=== PATIENT | male | born 1970 | race Caucasian/White ===

== ENCOUNTER → 2020-03-23 | Outpatient (CLI) | payer BC, OTHER ==
[2020-03-23 13:18] LABS: CHLORIDE 99 MMOL/L (98-107); POTASSIUM 4.5 MMOL/L (3.6-5.0); SODIUM 139 MMOL/L (135-145)
[2020-03-23 13:19] LABS: ALANINE AMINOTRANSFERASE 64 U/L (0-55); ALBUMIN 4.5 GM/DL (3.2-4.5); ALKALINE PHOSPHATASE 75 U/L (40-136); BILIRUBIN,TOTAL 0.6 MG/DL (0.1-1.0); BUN/CREATININE RATIO 18; CALCIUM 9.9 MG/DL (8.5-10.1); CARBON DIOXIDE 28 MMOL/L (21-32); CREATININE SERUM 1.03 MG/DL (0.60-1.30); GFR ESTIMATED > 60; GLUCOSE 137 MG/DL (70-105); TOTAL PROTEIN 7.6 GM/DL (6.4-8.2)
[2020-03-23 15:12] LABS: CHOLESTEROL 347 MG/DL (< 200); HDL CHOLESTEROL 43 MG/DL (40-60); TRIGLYCERIDES 237 MG/DL (<150); VLDL CHOLESTEROL 47 MG/DL (5-40)
== END ==
LOC: LAB FS 10:40
PROVIDERS: ATTEND Family Medicine
DX: E11.9 Type 2 diabetes mellitus without complications (principal)
CPT/HCPCS: 36415; 80053; 80061; 82043; 83036

== ENCOUNTER 2020-04-17 12:54 | Emergency (ER) | payer BC ==
[~2020-04-17] VITALS: Ht 175.2 cm; Wt 111.4 kg
[2020-04-17 12:57] VITALS: BP 154/97
--- OUTSIDE RECORDS SUMMARY | 2020-04-17 12:59 | XMS REPORT | Continuity of Care Document ---
Author Organization Unknown Address Unknown Phone Unavailable Allergies There is no data. Medications There is no data. Problems Date Dx Coded Attending Type Code Diagnosis Diagnosed By 03/24/2020 SINAI MURDOCK MD Ot E11 .9 TYPE 2 DIABETES MELLITUS WITHOUT COMPLIC 04/06/2020 SINAI MURDOCK MD, Ot E11 .9 TYPE 2 DIABETES MELLITUS WITHOUT COMPLIC Procedures There is no data. Results There is no data. Encounters ACCT No. Visit Date/Time Discharge Status Pt. Type Provider Facility Loc./Unit Complaint [id number] 03/23/2020 10:40:00 020 23:59:59 CLS Outpatient SINAI MURDOCK MD [facility] LAB FS MICROALBUMIN URIN A1C LIPID
[2020-04-17] MEDS ORDERED: DICL75TA2 PO (13:07)
[2020-04-17] MEDS ORDERED: CYCL10TA9 PO (13:07)
--- NOTE | 2020-04-17 13:07 | ED Back Pain ---
General Stated Complaint: BACK PAIN Source of Information: Patient, Old Records, RN/MD History of Present Illness Date Seen by Provider: Apr 17, 2020 Time Seen by Provider: 12:55 Initial Comments This patient is a 50-year-old male that presents to the emergency department with complaint of low back pain that radiates down his leg and up to his back when he bends his right leg. Patient states he works [employer] does lifting of boxes in his up and down a ladder quite often. Patient states he felt a pop in his back yesterday has been hurt in his low back ever since. Describes tightness. Patient denies any injury. Location: Lumbar Spine Timing/Duration: 2-3 Days Severity: Moderate Pain/Injury Location: Back Radiation: Upper Legs Method of Injury: Unknown Allergies and Home Medications Patient Home Medication List Home Medication List Reviewed: Yes Review of Systems Constitutional: No no symptoms reported; see HPI; No chills, No diaphoresis, No dizziness, No fever, No malaise, No weakness, No weight gain, No weight loss, No other EENTM: No see HPI, No no symptoms reported, No ear discharge, No hearing loss, No ear pain, No blurred vision, No double vision, No eye pain, No tearing, No vision loss, No dental problems, No hoarseness, No mouth pain, No mouth swelling, No epistaxis, No nose congestion, No nose pain, No throat pain, No throat swelling, No other Respiratory: No no symptoms reported, No see HPI, No cough, No dyspnea on exertion, No hemoptysis, No orthopnea, No phlegm, No short of breath, No stridor, No wheezing, No other Cardiovascular: No no symptoms reported, No see HPI, No chest pain, No edema, No Hx of Intervention, No palpitations, No syncope, No vascular heart diseas, No other Gastrointestinal: No RUQ, No LUQ, No RLQ, No LLQ, No no symptoms reported, No see HPI, No abdominal pain, No constipation, No diarrhea, No dysphagia, No hematemesis, No heartburn, No jaundice, No loss of appetite, No melena, No nausea, No vomiting, No other Genitourinary: No no symptoms reported, No see HPI, No decreased output, No discharge, No dysuria, No frequency, No hematuria, No hesitancy, No incontinence, No nocturia, No pain, No other Musculoskeletal: No no symptoms reported; see HPI, back pain; No gout, No joint pain, No joint swelling, No muscle pain, No muscle stiffness, No muscle cramps, No muscle twitching, No muscle weakness, No neck pain, No other Skin: No no symptoms reported, No see HPI, No change in color, No change in hair/nails, No dryness, No hx of skin cancer, No lesions, No lumps, No pruritus, No rash, No other All Other Systems Reviewed Negative Unless Noted: Yes Physical Exam Vital Signs Capillary Refill : Height, Weight, BMI Height: '" Weight: lbs. oz. kg; BMI Method: General Appearance: No Apparent Distress, WD/WN Neck: Full Range of Motion, Normal Inspection, Non Tender, Supple Cardiovascular: Regular Rate, Rhythm, No Edema, No Gallop, No JVD, No Murmur, Normal Peripheral Pulses Respiratory: Chest Non Tender, Lungs Clear, Normal Breath Sounds, No Accessory Muscle Use, No Respiratory Distress Gastrointestinal: Normal Bowel Sounds, No Organomegaly, No Pulsatile Mass, Non Tender, Soft Back: Normal Inspection, Other (tightness the lower back muscles. Patient describes sciatica.) Extremity: Normal Capillary Refill, Normal Inspection, Normal Range of Motion, Non Tender, No Calf Tenderness, No Pedal Edema, Calf Tenderness Skin: Normal Color, Warm/Dry Progress/Results/Core Measures Progress Progress Note : Time: 13:05 Progress Note Patient describes low back injury and sciatica. Has no known mechanism of injury. Other than work-related lifting and climbing up and down ladders. We'll write the patient prescription for Flexeril and diclofenac. Patient is to use heating pad and his low back in stretches as instructed. Follow-up with PCP in 2-3 doses if not improved. Departure Impression Primary Impression: Low back pain with sciatica Disposition: 01 HOME, SELF-CARE Condition: Stable Departure-Patient Inst. Decision time for Depature: 13:06 Referrals: SINAI MURDOCK MD (PCP/Family) Primary Care Physician Patient Instructions: Sciatica (DC), Sciatica Exercises Add. Discharge Instructions: We'll write the patient prescription for Flexeril and diclofenac. Patient is to use heating pad and his low back in stretches as instructed. Follow-up with PCP in 2-3 doses if not improved. Scripts Diclofenac Sodium (Diclofenac Sodium) 75 Mg Tablet. 75 MG PO BID for 10 Days, #20 TAB 0 Refills Prov: JEFFRY STCAK MD 04/17/20 Cyclobenzaprine HCl (Cyclobenzaprine HCl) 10 Mg Tablet 10 MG PO Q8H PRN for SPASMS, #10 TAB 0 Refills Prov: JEFFRY STACK MD 04/17/20 JEFFRY STACK MD Apr 17, 2020 13:07
== END 2020-04-17 13:14 | disposition home or self-care (01) ==
LOC: EDUNIT# 12:54 → ER FS 12:55
DX: M54.41 Lumbago with sciatica, right side (principal); X50.1XXA Overexertion from prolonged static or awkward postures, initial encounter; Y92.59 Other trade areas as the place of occurrence of the external cause
CPT/HCPCS: 99281

== ENCOUNTER 2020-07-21 16:04 | Emergency (ER) | payer BC ==
[~2020-07-21 16:04] MED LIST: CYCL10TA9 PO; DICL75TA2 PO
[2020-07-21] MEDS ORDERED: NS IV 1000 ML 1,000 ML IV STA (16:29)
[2020-07-21] MEDS ORDERED: KETOROLAC 60 MG/2 ML VIAL IV ONE (16:30)
[2020-07-21] MEDS ORDERED: ONDANSETRON 4 MG/2 ML (SDV) Z0FRAN IVP ONE (16:30)
--- NOTE | 2020-07-21 16:36 | ED Abdominal Pain ---
General Chief Complaint: Abdominal/GI Problems Stated Complaint: ABD CRAMPS,RIB PAIN,DIARRHEA Nursing Triage Note: Has had abdominal pain, diarrhea, and rectal cramping x 4 hours. Denies nausea, vomiting, or fevers. Has hx of diverticulitis. Sepsis Screen: No Definite Risk Source of Information: Patient History of Present Illness Date Seen by Provider: Jul 21, 2020 Time Seen by Provider: 16:20 Initial Comments This patient is a 50-year-old male assisted the emerge department complaining of lower abdominal pain and loose stool. Patient states he does have a history of diverticulitis. Patient denies any blood per rectum Severity/Quality: Moderate Location: Generalized Abdomen Allergies and Home Medications Allergies Coded Allergies: Penicillins (Verified Allergy, Unknown, 04/17/20) Home Medications Cyclobenzaprine HCl 10 Mg Tablet, 10 MG PO Q8H PRN for SPASMS Prescribed by: JEFFRY STACK on 04/17/20 1307 Diclofenac Sodium 75 Mg Tablet.dr, 75 MG PO BID Prescribed by: JEFFRY STACK on 04/17/20 1307 Patient Home Medication List Home Medication List Reviewed: Yes Review of Systems Review of Systems Constitutional: No no symptoms reported, No see HPI, No chills, No diaphoresis, No dizziness, No fever, No malaise, No weakness, No weight gain, No weight loss, No other EENTM: No No Symptoms Reported, No See HPI, No Blurred Vision, No Double Vision, No Eye Pain, No Eye Tearing, No Ear Drainage, No Ear Pain, No Mouth Pain, No Mouth Swelling, No Nose Congestion, No Nose Pain, No Throat Pain, No Throat Swelling, No Other Respiratory: Denies No Symptoms Reported, Denies See HPI, Denies Cough, Denies Orthopnea, Denies Shortness of Air, Denies SOA With Exertion, Denies SOA at Rest, Denies Stridor, Denies Wheezing, Denies Other Cardiovascular: Denies No Symptoms Reported, Denies See HPI, Denies Chest Pain, Denies Edema, Denies Irregular Heart Rate, Denies Lightheadedness, Denies Palpitations, Denies Syncope, Denies Other Gastrointestinal: Denies No Symptoms Reported, Denies See HPI, Denies Abdomen Distended, Denies Abdominal Pain, Denies Blood Streaked Stools, Denies Constipated; Diarrhea; Denies Difficulty Swallowing; Nausea; Denies Poor Appetite, Denies Poor Fluid Intake, Denies Rectal Bleeding, Denies Vomiting, Denies Other Genitourinary: Denies No Symptoms Reported, Denies See HPI, Denies Burning, Denies Discharge, Denies Drainage, Denies Frequency, Denies Flank Pain, Denies Hematuria, Denies Incontinence, Denies Pain, Denies Urgency, Denies Other Musculoskeletal: No no symptoms reported, No see HPI, No back pain, No gout, No joint pain, No joint swelling, No muscle pain, No muscle stiffness, No muscle cramps, No muscle twitching, No muscle weakness, No neck pain, No other Skin: No no symptoms reported, No see HPI, No change in color, No change in hair/nails, No dryness, No hx of skin cancer, No lesions, No lumps, No pruritus, No rash, No other All Other Systems Reviewed Negative Unless Noted: Yes Past Rpxlsum-Xubxwm-Rfvrgd Hx Patient Social History Alcohol Use: Denies Use Recreational Drug Use: No Smoking Status: Never a Smoker 2nd Hand Smoke Exposure: No Recent Foreign Travel: No Contact w/Someone Who Travel: No Recent Infectious Disease Expo: No Recent Hopitalizations: No Physical Abuse: No Sexual Abuse: No Mistreated: No Fear: No Seasonal Allergies Seasonal Allergies: No Past Medical History Surgeries: Yes (Meniscus repair) Vasectomy Respiratory: No Cardiac: Yes High Cholesterol, Hypertension Neurological: No Genitourinary: No Gastrointestinal: No Musculoskeletal: No Endocrine: Yes Diabetes, Non-Insulin dep HEENT: No Cancer: No Psychosocial: No Integumentary: No Blood Disorders: No Physical Exam Vital Signs Vital Signs - First Documented 07/21/20 16:24 Temp 36.3 Pulse 105 Resp 16 B/P (MAP) 157/106 (123) Pulse Ox 97 Capillary Refill : Less Than 3 Seconds Height/Weight/BMI Height: '" Weight: lbs. oz. kg; 36.00 BMI Method: General Appearance: WD/WN, no apparent distress Respiratory: chest non-tender, lungs clear, normal breath sounds, no respiratory distress, no accessory muscle use Cardiovascular: normal peripheral pulses, regular rate, rhythm, no edema, no gallop, no JVD, no murmur Gastrointestinal: normal bowel sounds, non tender, soft, no organomegaly, no pulsatile mass Extremities: normal range of motion, non-tender, normal inspection, no pedal edema, no calf tenderness, normal capillary refill Skin: normal color, warm/dry Lymphatic: no adenopathy Progress/Results/Core Measures Results/Orders Lab Results Laboratory Tests Test 07/21/20 16:40 07/21/20 16:55 Range/Units White Blood Count 8.8 4.3-11.0 10^3/uL Red Blood Count 5.08 4.35-5.85 10^6/uL Hemoglobin 15.2 13.3-17.7 G/DL Hematocrit 44 40-54 % Mean Corpuscular Volume 86 80-99 FL Mean Corpuscular Hemoglobin 30 25-34 PG Mean Corpuscular Hemoglobin Concent 35 32-36 G/DL Red Cell Distribution Width 13.0 10.0-14.5 % Platelet Count 272 130-400 10^3/uL Mean Platelet Volume 11.2 H 7.4-10.4 FL Neutrophils (%) (Auto) 63 42-75 % Lymphocytes (%) (Auto) 28 12-44 % Monocytes (%) (Auto) 7 0-12 % Eosinophils (%) (Auto) 1 0-10 % Basophils (%) (Auto) 1 0-10 % Neutrophils # (Auto) 5.6 1.8-7.8 X 10^3 Lymphocytes # (Auto) 2.5 1.0-4.0 X 10^3 Monocytes # (Auto) 0.6 0.0-1.0 X 10^3 Eosinophils # (Auto) 0.1 0.0-0.3 10^3/uL Basophils # (Auto) 0.1 0.0-0.1 10^3/uL Sodium Level 131 L 135-145 MMOL/L Potassium Level 4.0 3.6-5.0 MMOL/L Chloride Level 94 L 98-107 MMOL/L Carbon Dioxide Level 23 21-32 MMOL/L Anion Gap 14 5-14 MMOL/L Blood Urea Nitrogen 17 7-18 MG/DL Creatinine 0.90 0.60-1.30 MG/DL Estimat Glomerular Filtration Rate > 60 BUN/Creatinine Ratio 19 Glucose Level 349 H 70-105 MG/DL Calcium Level 9.5 8.5-10.1 MG/DL Corrected Calcium 9.1 8.5-10.1 MG/DL Total Bilirubin 0.4 0.1-1.0 MG/DL Aspartate Amino Transf (AST/SGOT) 78 H 5-34 U/L Alanine Aminotransferase (ALT/SGPT) 82 H 0-55 U/L Alkaline Phosphatase 83 40-136 U/L Total Protein 7.6 6.4-8.2 GM/DL Albumin 4.5 3.2-4.5 GM/DL Urine Color YELLOW Urine Clarity CLEAR Urine pH 6.0 5-9 Urine Specific [place] 1.020 1.016-1.022 Urine Protein TRACE H NEGATIVE Urine Glucose (UA) 3+ H NEGATIVE Urine Ketones NEGATIVE NEGATIVE Urine Nitrite NEGATIVE NEGATIVE Urine Bilirubin NEGATIVE NEGATIVE Urine Urobilinogen 0.2 < = 1.0 MG/DL Urine Leukocyte Esterase NEGATIVE NEGATIVE Urine RBC (Auto) TRACE H NEGATIVE Urine RBC RARE /HPF Urine WBC RARE /HPF Urine Squamous Epithelial Cells NONE /HPF Urine Crystals NONE /LPF Urine Bacteria NEGATIVE /HPF Urine Casts NONE /LPF Urine Mucus NEGATIVE /LPF Urine Culture Indicated NO My Orders Orders - JEFFRY STACK MD Ct Abd/Pelv W (Appendicitis) (07/21/20 16:29) Ed Iv/Invasive Line Start (07/21/20 16:29) Cbc With Automated Diff (07/21/20 16:29) Comprehensive Metabolic Panel (07/21/20 16:29) Urinalysis (07/21/20 16:29) Ns Iv 1000 Ml (Sodium Chloride 0.9%) (07/21/20 16:29) Ondansetron Injection (Zofran Injectio (07/21/20 16:30) Ketorolac Injection (Toradol Injection) (07/21/20 16:30) Iohexol Injection (Omnipaque 350 Mg/Ml 1 (07/21/20 17:30) Received Contrast (Hold Metformin- Contr (07/21/20 17:30) Sodium Chloride Flush (Catheter Flush Sy (07/21/20 17:30) Ns (Ivpb) (Sodium Chloride 0.9% Ivpb Bag (07/21/20 17:30) Medications Given in ED Current Medications Medications Dose Ordered Sig/Yesica Route Start Time Stop Time Status Last Admin Dose Admin Iohexol 100 ml ONCE ONCE IV 07/21/20 17:30 07/21/20 17:31 DC 07/21/20 17:31 100 ML Ketorolac Tromethamine 15 mg ONCE ONCE IV 07/21/20 16:30 07/21/20 16:32 DC 07/21/20 16:43 15 MG Ondansetron HCl 4 mg ONCE ONCE IVP 07/21/20 16:30 07/21/20 16:32 DC 07/21/20 16:42 4 MG Sodium Chloride 10 ml NEEDED PRN IV 07/21/20 17:30 07/21/20 17:32 10 ML Sodium Chloride 100 ml ONCE ONCE IV 07/21/20 17:30 07/21/20 17:31 DC 07/21/20 17:32 100 ML Vital Signs/I&O 07/21/20 16:24 Temp 36.3 Pulse 105 Resp 16 B/P (MAP) 157/106 (123) Pulse Ox 97 Blood Pressure Mean: 123 Progress Progress Note : Time: 18:00 Progress Note IMPRESSION: 1. Mild acute-subacute sigmoid colon diverticulitis. No perforation or abscess. 2. Hepatomegaly with diffuse hepatic steatosis. Encourage by mouth fluids. Tylenol Motrin as needed for pain or discomfort. We'll also prescribe Bentyl. Use as prescribed. Patient be placed on Cipro and Flagyl. Patient should've a clear liquid diet until pain free. Follow-up with PCP in 2-3 days. Departure Impression Primary Impression: Sigmoid diverticulitis Disposition: HOME, SELF-CARE Condition: Stable Departure-Patient Inst. Decision time for Depature: 18:01 Referrals: SINAI MURDOCK MD (PCP/Family) Primary Care Physician Patient Instructions: Diverticulitis (DC) Add. Discharge Instructions: Encourage by mouth fluids. Tylenol Motrin as needed for pain or discomfort. We'll also prescribe Bentyl. Use as prescribed. Patient be placed on Cipro and Flagyl. Patient should've a clear liquid diet until pain free. Follow-up with PCP in 2-3 days. All discharge instructions reviewed with patient and/or family. Voiced understanding. Scripts Dicyclomine HCl (Dicyclomine HCl) 20 Mg Tablet 20 MG PO TID, #30 TAB 0 Refills Prov: JEFFRY STACK MD 07/21/20 Metronidazole (Metronidazole) 500 Mg Tablet 500 MG PO TID for 10 Days, #30 TAB 0 Refills Prov: JEFFRY STACK MD 07/21/20 Ciprofloxacin HCl (Ciprofloxacin HCl) 500 Mg Tablet 500 MG PO BID, #14 TAB Prov: JEFFRY STACK MD 07/21/20 JEFFRY STACK MD Jul 21, 2020 16:36
[2020-07-21 17:01] LABS: BASOPHILS % (AUTO) 1 % (0-10); EOSINOPHILS % (AUTO) 1 % (0-10); HEMATOCRIT 44 % (40-54); HEMOGLOBIN 15.2 G/DL (13.3-17.7); LYMPHOCYTES % (AUTO) 28 % (12-44); MEAN CORPUSCULAR HEMOGLOBIN 30 PG (25-34); MEAN CORPUSCULAR HGB CONC 35 G/DL (32-36); MEAN CORPUSCULAR VOLUME 86 FL (80-99); MEAN PLATELET VOLUME 11.2 FL (7.4-10.4); MONOCYTES % (AUTO) 7 % (0-12); NEUTROPHILS % (AUTO) 63 % (42-75); PLATELET COUNT 272 10^3/uL (130-400); WHITE BLOOD COUNT 8.8 10^3/uL (4.3-11.0)
[2020-07-21 17:02] LABS: BASOPHILS # (AUTO) 0.1 10^3/uL (0.0-0.1); EOSINOPHILS # (AUTO) 0.1 10^3/uL (0.0-0.3); LYMPHOCYTES # (AUTO) 2.5 X 10^3 (1.0-4.0); MONOCYTES # (AUTO) 0.6 X 10^3 (0.0-1.0); NEUTROPHILS # (AUTO) 5.6 X 10^3 (1.8-7.8)
[2020-07-21 17:15] LABS: CARBON DIOXIDE 23 MMOL/L (21-32); CHLORIDE 94 MMOL/L (98-107); SODIUM 131 MMOL/L (135-145)
[2020-07-21 17:16] LABS: ALANINE AMINOTRANSFERASE 82 U/L (0-55); ALBUMIN 4.5 GM/DL (3.2-4.5); ALKALINE PHOSPHATASE 83 U/L (40-136); BILIRUBIN,TOTAL 0.4 MG/DL (0.1-1.0); BUN/CREATININE RATIO 19; CALCIUM 9.5 MG/DL (8.5-10.1); GFR ESTIMATED > 60; GLUCOSE 349 MG/DL (70-105); TOTAL PROTEIN 7.6 GM/DL (6.4-8.2)
[2020-07-21] MEDS ORDERED: NS 100 ML (IVPB) BAG IV ONE (17:30)
[2020-07-21] MEDS ORDERED: CATHETER FLUSH 10 ML SYR IV PRN (17:30)
[2020-07-21] MEDS ORDERED: IOHEXOL 350 MG/ML 100 ML (OMNIPAQUE 350) VIAL IV ONE (17:30)
[2020-07-21] MEDS ORDERED: HOLD METFORMIN - RECEIVED CONTRAST 20 ML VIAL IV SCH (17:30)
[2020-07-21 17:36] LABS: CLARITY,URINE CLEAR; COLOR,URINE YELLOW
[2020-07-21 17:37] LABS: BACTERIA,URINE NEGATIVE /HPF; BILIRUBIN,URINE NEGATIVE (NEGATIVE); GLUCOSE, URINE (UA) 3+ (NEGATIVE); KETONES,URINE NEGATIVE (NEGATIVE); LEUKOCYTE ESTERASE ,URINE NEGATIVE (NEGATIVE); NITRITE,URINE NEGATIVE (NEGATIVE); PROTEIN,URINE TRACE (NEGATIVE); RBC,URINE RARE /HPF; WBC,URINE RARE /HPF
--- NOTE | 2020-07-21 17:49 | Diagnostic Imaging Report ---
CT ABD/PELV W (APPENDICITIS) TECHNIQUE: Multiple contiguous axial images were obtained through the abdomen and pelvis after administration of intravenous contrast. All CT scans use one or more of the following dose optimizing techniques: automated exposure control, MA and/or KvP adjustment based on a patient size and exam type, or iterative reconstruction. INDICATION: Lower abdominal pain for three weeks. COMPARISON: None available. FINDINGS: Lower chest: The lung bases are clear. No pericardial or pleural effusion. Peritoneum: No free intraperitoneal air or fluid. Liver and biliary system: Liver is enlarged with diffuse hypoattenuation of liver indicative of hepatic steatosis. No focal hepatic lesion. The gallbladder is normal. No biliary duct dilation. Spleen and Pancreas: Spleen is normal. The pancreas enhances normally without mass lesion or peripancreatic inflammatory changes. Adrenals: Normal. tract: The kidneys enhance normally without suspicious mass or obstruction. Urinary bladder is distended without wall thickening. Prostate is not enlarged. GI tract: Stomach is decompressed. No bowel obstruction. Sigmoid colon diverticulosis with associated wall thickening and mild surrounding inflammation is indicative of mild diverticulitis. No perforation or abscess. Appendix is normal. Vasculature and Lymph nodes: Normal caliber aorta. No abdominal or pelvic lymphadenopathy. Musculoskeletal: No concerning osseous lesion. IMPRESSION: 1. Mild acute-subacute sigmoid colon diverticulitis. No perforation or abscess. 2. Hepatomegaly with diffuse hepatic steatosis. Dictated by: Dictated on workstation # [id number]
[2020-07-21] MEDS ORDERED: DICY20TA10 PO (18:03)
[2020-07-21] MEDS ORDERED: CIPR500T4 PO (18:03)
[2020-07-21] MEDS ORDERED: METR-145 PO (18:03)
[2020-07-21] MEDS ORDERED: LEVOFLOXACIN 500 MG TAB (LEVAQUIN) PO ONE (18:15)
[2020-07-21 18:24] VITALS: BP 133/86
== END 2020-07-21 18:20 | disposition home or self-care (01) ==
LOC: EDUNIT# 16:04 → ER FS 16:06
DX: K57.32 Diverticulitis of large intestine without perforation or abscess without bleeding (principal); Z88.0 Allergy status to penicillin
CPT/HCPCS: 36415; 74177; 80053; 81000; 85025

== ENCOUNTER 2020-09-10 15:03 | Emergency (ER) | payer BC ==
[2020-09-10] MEDS ORDERED: NS IV 1000 ML 1,000 ML IV SCH (15:40)
[2020-09-10] MEDS ORDERED: ACETAMINOPHEN 500 MG TAB (TYLENOL) PO ONE (15:45)
[2020-09-10] MEDS ORDERED: IBUPROFEN 800 MG (MOTRIN) TAB PO ONE (15:45)
[2020-09-10 15:56] LABS: HEMATOCRIT 42 % (40-54); HEMOGLOBIN 14.5 G/DL (13.3-17.7); MEAN CORPUSCULAR HEMOGLOBIN 30 PG (25-34); MEAN CORPUSCULAR HGB CONC 35 G/DL (32-36); MEAN CORPUSCULAR VOLUME 87 FL (80-99); MEAN PLATELET VOLUME 11.7 FL (7.4-10.4); PLATELET COUNT 214 10^3/uL (130-400)
[2020-09-10 15:57] LABS: BASOPHILS % (AUTO) 1 % (0-10); EOSINOPHILS % (AUTO) 0 % (0-10); LYMPHOCYTES % (AUTO) 15 % (12-44); MONOCYTES # (AUTO) 0.6 X 10^3 (0.0-1.0); MONOCYTES % (AUTO) 9 % (0-12); NEUTROPHILS # (AUTO) 5.3 X 10^3 (1.8-7.8); NEUTROPHILS % (AUTO) 75 % (42-75)
--- NOTE | 2020-09-10 16:05 | ED General ---
General Chief Complaint: Cough/Cold/Flu Symptoms Stated Complaint: FEELS FEVERISH;WEAKNESS Nursing Triage Note: Has had congestion x 3 days. At 1030 this morning started having chills, nausea, fatigue, and headache. No known sick contacts. Denies fevers. Nursing Sepsis Screen: No Definite Risk History of Present Illness Date Seen by Provider: Sep 10, 2020 Time Seen by Provider: 15:00 Initial Comments The patient is a 50-year-old male with a history of hypertension, hyperlipidemia and mme-dblpiog-gnhnkguug diabetes who presents for evaluation of multiple symptoms with onset about 3 days ago. Patient notes nasal congestion since the day of onset, mild. He notes an associated very mild dry cough as well. Late is morning he noticed additional symptoms including chills, mild nausea, body aches, fatigue and a mild headache. No associated sae fevers measured at home, vomiting, focal weakness, numbness, tingling, neck stiffness/pain/meningismus (patient ranges neck fully in all dimensions without discomfort or distress), vision changes, shortness of breath or chest pain of any kind, abdominal pain of any kind, flank pain, back pain, dysuria or hematuria, changes in bowel habits. Patient is alert and pleasantly and appropriately interactive and in absolute no acute distress, very mildly tachycardic with a heart rate of about 103 but with appropriate oxygenation and otherwise normal vital signs upon initial evaluation here in the emergency department. Allergies and Home Medications Allergies Coded Allergies: Penicillins (Verified Allergy, Unknown, 04/17/20) Home Medications Ciprofloxacin HCl 500 Mg Tablet, 500 MG PO BID Prescribed by: JEFFRY STACK on 07/21/201802 Cyclobenzaprine HCl 10 Mg Tablet, 10 MG PO Q8H PRN for SPASMS Prescribed by: JEFFRY STACK on 04/17/20 130 Diclofenac Sodium 75 Mg Tablet.dr, 75 MG PO BID Prescribed by: JEFFRY STACK on 04/17/20 130 Dicyclomine HCl 20 Mg Tablet, 20 MG PO TID Prescribed by: JEFFRY STACK on 07/21/201802 Metronidazole 500 Mg Tablet, 500 MG PO TID Prescribed by: JEFFRY STACK on 07/21/201802 Patient Home Medication List Home Medication List Reviewed: Yes Review of Systems Review of Systems Constitutional: see HPI All Other Systems Reviewed Negative Unless Noted: Yes (Negative excepted noted.) Past Injcmao-Qxekrz-Ezxtfe Hx Past Med/Social Hx: Reviewed Nursing Past Med/Soc Hx Patient Social History Alcohol Use: Denies Use Recreational Drug Use: No Smoking Status: Never a Smoker 2nd Hand Smoke Exposure: No Recent Foreign Travel: No Contact w/Someone Who Travel: No Recent Infectious Disease Expo: No Recent Hopitalizations: No Physical Abuse: No Sexual Abuse: No Mistreated: No Fear: No Seasonal Allergies Seasonal Allergies: No Past Medical History Surgeries: Yes (Meniscus repair) Vasectomy Respiratory: No Cardiac: Yes High Cholesterol, Hypertension Neurological: No Genitourinary: No Gastrointestinal: No Musculoskeletal: No Endocrine: Yes Diabetes, Non-Insulin dep HEENT: No Cancer: No Psychosocial: No Integumentary: No Blood Disorders: No Family Medical History Reviewed Nursing Family Hx Physical Exam Vital Signs Vital Signs - First Documented 09/10/20 09/10/20 15:20 15:24 Temp 36.9 Pulse 103 Resp 16 B/P (MAP) 165/90 (115) Pulse Ox 97 O2 Delivery Room Air Capillary Refill : Less Than 3 Seconds Height, Weight, BMI Height: '" Weight: lbs. oz. kg; 36.00 BMI Method: General Appearance: No Apparent Distress Comments This is an older male appearing nontoxic and in no acute distress. Head is normocephalic and atraumatic. Neck is supple and nontender. Oropharynx is moist. Lungs are clear to auscultation at all stations. There is a normal S1 and S2 without rubs or gallops and capillary refill is appropriate, less than 2 seconds globally. There is no dependent peripheral edema noted and no calf tenderness or swelling bilaterally and peripheral pulses are 2+ and equal to bilateral radials, dorsalis pedis and posterior tibials. Abdomen is soft, nontender nondistended. Skin is warm and dry without cyanosis, clubbing or edema. Psychiatrically, the patient didn't straights appropriate mood and affect and is alert. Progress/Results/Core Measures Suspected Sepsis Recent Fever Within 48 Hours: No Infection Criteria Present: None New/Unexplained Altered Menta: No Sepsis Screen: No Definite Risk SIRS Temperature: Pulse: 103 Respiratory Rate: 16 Laboratory Tests 09/10/20 15:41: White Blood Count 7.0 Blood Pressure 165 /90 Mean: 115 Laboratory Tests 09/10/20 15:41: Creatinine 0.90, Platelet Count 214, Total Bilirubin 0.3 Results/Orders Lab Results Laboratory Tests Test 09/10/20 15:35 09/10/20 15:36 09/10/20 15:41 09/10/20 15:47 Range/Units Glucometer 436 *H 70-110 MG/DL White Blood Count 7.0 4.3-11.0 10^3/uL Red Blood Count 4.83 4.35-5.85 10^6/uL Hemoglobin 14.5 13.3-17.7 G/DL Hematocrit 42 40-54 % Mean Corpuscular Volume 87 80-99 FL Mean Corpuscular Hemoglobin 30 25-34 PG Mean Corpuscular Hemoglobin Concent 35 32-36 G/DL Red Cell Distribution Width 12.8 10.0-14.5 % Platelet Count 214 130-400 10^3/uL Mean Platelet Volume 11.7 H 7.4-10.4 FL Immature Granulocyte % (Auto) 0 % Neutrophils (%) (Auto) 75 42-75 % Lymphocytes (%) (Auto) 15 12-44 % Monocytes (%) (Auto) 9 0-12 % Eosinophils (%) (Auto) 0 0-10 % Basophils (%) (Auto) 1 0-10 % Neutrophils # (Auto) 5.3 1.8-7.8 X 10^3 Lymphocytes # (Auto) 1.0 1.0-4.0 X 10^3 Monocytes # (Auto) 0.6 0.0-1.0 X 10^3 Eosinophils # (Auto) 0.0 0.0-0.3 10^3/uL Basophils # (Auto) 0.0 0.0-0.1 10^3/uL Immature Granulocyte # (Auto) 0.0 0.0-0.1 10^3/uL Sodium Level 135 135-145 MMOL/L Potassium Level 4.3 3.6-5.0 MMOL/L Chloride Level 97 L 98-107 MMOL/L Carbon Dioxide Level 23 21-32 MMOL/L Anion Gap 15 H 5-14 MMOL/L Blood Urea Nitrogen 9 7-18 MG/DL Creatinine 0.90 0.60-1.30 MG/DL Estimat Glomerular Filtration Rate > 60 BUN/Creatinine Ratio 10 Glucose Level 455 *H 70-105 MG/DL Calcium Level 9.2 8.5-10.1 MG/DL Corrected Calcium 9.0 8.5-10.1 MG/DL Total Bilirubin 0.3 0.1-1.0 MG/DL Aspartate Amino Transf (AST/SGOT) 33 5-34 U/L Alanine Aminotransferase (ALT/SGPT) 55 0-55 U/L Alkaline Phosphatase 106 40-136 U/L Total Protein 6.9 6.4-8.2 GM/DL Albumin 4.3 3.2-4.5 GM/DL Urine Color YELLOW Urine Clarity CLEAR Urine pH 6.5 5-9 Urine Specific [place] 1.010 L 1.016-1.022 Urine Protein NEGATIVE NEGATIVE Urine Glucose (UA) 3+ H NEGATIVE Urine Ketones NEGATIVE NEGATIVE Urine Nitrite NEGATIVE NEGATIVE Urine Bilirubin NEGATIVE NEGATIVE Urine Urobilinogen 0.2 < = 1.0 MG/DL Urine Leukocyte Esterase NEGATIVE NEGATIVE Urine RBC (Auto) TRACE H NEGATIVE Urine RBC NONE /HPF Urine WBC RARE /HPF Urine Squamous Epithelial Cells NONE /HPF Urine Crystals NONE /LPF Urine Bacteria NEGATIVE /HPF Urine Casts NONE /LPF Urine Mucus NEGATIVE /LPF Urine Culture Indicated NO Micro Results Microbiology 09/10/20 Influenza Types A,B Antigen (GENNARO) - Final, Complete My Orders Orders - MICHELLE GIMENEZ MD Cbc With Automated Diff (09/10/20 15:40) Comprehensive Metabolic Panel (09/10/20 15:40) Ua Culture If Indicated (09/10/20 15:40) Chest 1 View Ap/Pa Only (09/10/20 15:40) Ibuprofen Tablet (Motrin Tablet) (09/10/20 15:45) Acetaminophen Tablet (Tylenol Tablet) (09/10/20 15:45) Ed Iv/Invasive Line Start (09/10/20 15:40) Ns Iv 1000 Ml (Sodium Chloride 0.9%) (09/10/20 15:40) Influenza A And B Antigens (09/10/20 15:40) Coronavirus Sars-Cov-2 So 2018 (09/10/20 15:40) Insulin (Regular) Human (Novolin R (Per (09/10/20 16:45) Medications Given in ED Current Medications Medications Dose Ordered Sig/Yesica Route Start Time Stop Time Status Last Admin Dose Admin Acetaminophen 1,000 mg ONCE ONCE PO 09/10/20 15:45 09/10/20 15:46 DC 10/31/20 15:55 1,000 MG Ibuprofen 800 mg ONCE ONCE PO 09/10/20 15:45 09/10/20 15:46 DC 09/10/20 15:55 800 MG Vital Signs/I&O 09/10/20 09/10/20 15:20 15:24 Temp 36.9 Pulse 103 Resp 16 B/P (MAP) 165/90 (115) Pulse Ox 97 O2 Delivery Room Air Capillary Refill : Less Than 3 Seconds Blood Pressure Mean: 115 Progress Note : Time: 16:04 Progress Note 50-year-old male who presents with 3 days of a variety of symptoms suggestive of respiratory viral syndrome. Very well-appearing and with vital signs are generally quite reassuring. Is diabetic and Accu-Chek is in the 400s here. Because of this, we'll check basic labs and urine along with influenza and COVID swabs and will give a fluid bolus and some medication for symptoms and will then reevaluate. If workup is reassuring, anticipate discharge home to quarantine in anticipation of COVID results. Patient understands and agrees with this plan of care. 1630: Workup largely unremarkable and reassuring aside from evidence of hyperglycemia without acidosis and without ketonemia/ketonuria. Patient reports compliance with his metformin. Suspect poorly-controlled hyperglycemia is a rather chronic issue for him. Have counseled the patient to follow up very closely with his primary care physician in the office in the next 1-2 days for a reevaluation of his symptoms and a discussion of next steps in care. Have counseled him that he may need to transition to insulin for her diabetes management but will allow his primary doctor to take the next steps on this. Has received a liter of fluids and some medication for symptoms and feels better. We'll give a dose of subcutaneous insulin. Patient has been tested for COVID-19 and is advised to quarantine at home at least until the results come back negative and he feels better. Have advised him to purchase a home pulse oximeter to monitor his oxygen levels (98% on RA as of this writing). He understands that if he feels worse is that of better or develops other new symptoms of concern that he will need to return to the emergency department immediately for reevaluation. All questions are answered. Diagnostic Imaging Comments NAME: TIM CONTI [facility] REC#: [id number] PT STATUS: REG ER : 1970 PHYSICIAN: MICHELLE GIMENEZ MD ADMIT DATE: 09/10/20/ER FS Draft Date of Exam:09/10/20 CHEST 1 VIEW AP/PA ONLY INDICATION: Congestion. EXAMINATION: Portable erect AP chest at 3:45 p.m. COMPARISON: There is no prior study available for comparison. FINDINGS: The heart size is within normal limits. The lungs seem generally clear but the left retrocardiac region is not well penetrated. There is no sign of pneumonia or a pleural effusion. The mediastinum is not widened. The osseous structures are intact. IMPRESSION: 1. There is no evidence for an acute cardiopulmonary abnormality on this suboptimal exam. 2. If clinical concern regarding an underlying abnormality persists, then a follow-up PA and lateral chest would be recommended for further study. Dictated on workstation # [id number] Dict: 09/10/20 1557 Trans: 09/10/20 1611 [facility] [id number] Interpreted by: ISABELLE BANGURA MD Electronically signed by: Departure Impression Primary Impression: Hyperglycemia due to type 2 diabetes mellitus Qualified Codes: E11.65 - Type 2 diabetes mellitus with hyperglycemia Additional Impressions: Person under investigation for COVID-19 Viral syndrome Disposition: HOME, SELF-CARE Condition: Improved Departure-Patient Inst. Referrals: SINAI MURDOCK MD (PCP/Family) Primary Care Physician Patient Instructions: Hyperglycemia, Adult, Coronavirus Disease 2019 (COVID-19) Overview, Viral Syndrome (DC) Add. Discharge Instructions: Follow-up very closely with your primary care physician in the office as we discussed for a reevaluation of your symptoms and a discussion of next best st eps in care. I would like you to be seen in the office in the next 1-2 days to follow up. Make sure to discuss next steps in diabetes management with your doctor as your blood sugar was elevated in the emergency department. Recommend you discuss the risks and benefits of insulin therapy. Take ibuprofen and Tylenol (600 mg of ibuprofen every 6 hours and 500 mg of Tylenol every 6 hours are appropriate doses) for fever and/or discomfort. Drink plenty of fluids and get plenty of rest. Return to the emergency department right away with worsening symptoms of any kind or with any other new symptoms of concern. MICHELLE GIMENEZ MD Sep 10, 2020 16:05
--- NOTE | 2020-09-10 16:12 | Diagnostic Imaging Report ---
INDICATION: Congestion. EXAMINATION: Portable erect AP chest at 3:45 p.m. COMPARISON: There is no prior study available for comparison. FINDINGS: The heart size is within normal limits. The lungs seem generally clear but the left retrocardiac region is not well penetrated. There is no sign of pneumonia or a pleural effusion. The mediastinum is not widened. The osseous structures are intact. IMPRESSION: 1. There is no evidence for an acute cardiopulmonary abnormality on this suboptimal exam. 2. If clinical concern regarding an underlying abnormality persists, then a follow-up PA and lateral chest would be recommended for further study. Dictated by: Dictated on workstation # [id number]
[2020-09-10 16:19] LABS: CLARITY,URINE CLEAR; COLOR,URINE YELLOW; GLUCOSE, URINE (UA) 3+ (NEGATIVE); KETONES,URINE NEGATIVE (NEGATIVE); PH,URINE 6.5 (5-9); PROTEIN,URINE NEGATIVE (NEGATIVE)
[2020-09-10 16:20] LABS: BACTERIA,URINE NEGATIVE /HPF; BILIRUBIN,URINE NEGATIVE (NEGATIVE); LEUKOCYTE ESTERASE ,URINE NEGATIVE (NEGATIVE); NITRITE,URINE NEGATIVE (NEGATIVE); WBC,URINE RARE /HPF
[2020-09-10 16:25] LABS: CARBON DIOXIDE 23 MMOL/L (21-32); CHLORIDE 97 MMOL/L (98-107); POTASSIUM 4.3 MMOL/L (3.6-5.0); SODIUM 135 MMOL/L (135-145)
[2020-09-10 16:26] LABS: BUN/CREATININE RATIO 10; GFR ESTIMATED > 60; GLUCOSE 455 MG/DL (70-105)
[2020-09-10 16:27] LABS: ALANINE AMINOTRANSFERASE 55 U/L (0-55); ALBUMIN 4.3 GM/DL (3.2-4.5); ALKALINE PHOSPHATASE 106 U/L (40-136); BILIRUBIN,TOTAL 0.3 MG/DL (0.1-1.0); CALCIUM 9.2 MG/DL (8.5-10.1); TOTAL PROTEIN 6.9 GM/DL (6.4-8.2)
[2020-09-10] MEDS ORDERED: inSUlin (REGULAR) HUMAN 1 UNIT/0.01 ML (CHARGE PER UNIT) SC ONE (16:45)
[2020-09-10 17:07] VITALS: BP 139/63
== END 2020-09-10 17:08 | disposition home or self-care (01) ==
LOC: EDUNIT# 15:03 → ER FS 15:05
DX: E11.65 Type 2 diabetes mellitus with hyperglycemia (principal); B34.9 Viral infection, unspecified; Z20.828 Contact with and (suspected) exposure to other viral communicable diseases; Z88.0 Allergy status to penicillin
CPT/HCPCS: 36415; 71045; 80053; 81000; 82962; 85025; 87804 ×2; 99284; U0002; 87635

== ENCOUNTER → 2020-09-10 | Emergency (ER) | payer BC ==
[~2020-09-10] MED LIST changes: +CIPR500T4 PO; +DICY20TA10 PO; +METR-145 PO
== END ==
LOC: EDUNIT# 15:14 → ER 15:16
DX: R51.9 Headache, unspecified (principal); R50.9 Fever, unspecified; Z20.828 Contact with and (suspected) exposure to other viral communicable diseases

== ENCOUNTER → 2020-10-29 | Outpatient (CLI) | payer BC | LOC: LAB FS 08:09 | PROVIDERS: ATTEND Family Medicine | DX: E11.9 Type 2 diabetes mellitus without complications (principal) | CPT/HCPCS: 36415; 83036 ==

== ENCOUNTER → 2021-03-02 | Outpatient (CLI) | payer BC ==
[~2021-03-02] MED LIST changes: -CIPR500T4 PO; +CIPR500T5 PO
[2021-03-02 08:54] LABS: SODIUM 138 MMOL/L (135-145)
[2021-03-02 08:55] LABS: ALANINE AMINOTRANSFERASE 31 U/L (0-55); ALBUMIN 4.7 GM/DL (3.2-4.5); ALKALINE PHOSPHATASE 61 U/L (40-136); BUN/CREATININE RATIO 21; CALCIUM 9.5 MG/DL (8.5-10.1); CARBON DIOXIDE 30 MMOL/L (21-32); CHLORIDE 96 MMOL/L (98-107); CREATININE SERUM 1.01 MG/DL (0.60-1.30); GFR ESTIMATED > 60; GLUCOSE 139 MG/DL (70-105); TOTAL PROTEIN 7.7 GM/DL (6.4-8.2)
[2021-03-02 15:08] LABS: CHOLESTEROL 201 MG/DL (< 200); HDL CHOLESTEROL 41 MG/DL (40-60); TRIGLYCERIDES 234 MG/DL (<150); VLDL CHOLESTEROL 47 MG/DL (5-40)
== END ==
LOC: LAB FS 08:14
PROVIDERS: ATTEND Family Medicine
DX: E11.9 Type 2 diabetes mellitus without complications (principal)
CPT/HCPCS: 36415; 80053; 80061; 83036

== ENCOUNTER → 2021-09-25 | Outpatient (CLI) | payer OTHER ==
[2021-09-25 12:32] LABS: ALBUMIN 4.2 GM/DL (3.2-4.5); BILIRUBIN,TOTAL 0.5 MG/DL (0.1-1.0); CALCIUM 9.1 MG/DL (8.5-10.1); CREATININE SERUM 0.84 MG/DL (0.60-1.30); POTASSIUM 4.7 MMOL/L (3.6-5.0); TOTAL PROTEIN 7.1 GM/DL (6.4-8.2)
== END ==
LOC: LAB FS 11:18
PROVIDERS: ATTEND Family Medicine
DX: E11.9 Type 2 diabetes mellitus without complications (principal)
CPT/HCPCS: 36415; 80053; 80061; 82043; 83036

== ENCOUNTER → 2022-03-27 | Outpatient (CLI) | payer OTHER ==
[~2022-03-27] MED LIST changes: +CYCL10TA25 PO; -CYCL10TA9 PO; +DICY20TA PO; -DICY20TA10 PO
[2022-03-27 08:57] LABS: ALBUMIN 4.1 GM/DL (3.2-4.5); BILIRUBIN,TOTAL 0.6 MG/DL (0.1-1.0); CALCIUM 8.8 MG/DL (8.5-10.1); CREATININE SERUM 0.7 MG/DL (0.60-1.30); POTASSIUM 3.8 MMOL/L (3.6-5.0); TOTAL PROTEIN 6.8 GM/DL (6.4-8.2)
== END ==
LOC: LAB FS 07:10
PROVIDERS: ATTEND Family Medicine
DX: I10 Essential (primary) hypertension (principal); E11.9 Type 2 diabetes mellitus without complications; E78.5 Hyperlipidemia, unspecified; K21.9 Gastro-esophageal reflux disease without esophagitis; F41.1 Generalized anxiety disorder
CPT/HCPCS: 36415; 80053; 80061; 83036

== ENCOUNTER 2023-01-12 15:48 | Emergency (ER) | payer OTHER ==
[~2023-01-12] VITALS: Ht 175.3 cm; Wt 100.2 kg
--- NOTE | 2023-01-12 16:04 | ED Upper Extremity ---
General Chief Complaint: Upper Extremity Stated Complaint: LEFT SHOULDER INJURY Source: patient Exam Limitations: no limitations History of Present Illness Date Seen by Provider: Jan 12, 2023 Time Seen by Provider: 16:01 Initial Comments Patient is a 53-year-old male who presents ED with left elbow pain. Patient states 1 hour [place] when he fell down on extended out left hand felt immediate sharp pain to his medial lateral elbow. Patient reports pain with any type of movement with swelling. Denies any redness or bruising. Did have extended out left hand but denies any wrist pain or shoulder pain. No history of previous fracture to the elbow. Denies taking thing for pain. Limited range of motion secondary to pain without obvious dislocation Allergies and Home Medications Allergies Coded Allergies: Penicillins (Verified Allergy, Unknown, 04/17/20) Patient Home Medication List Home Medication List Reviewed: Yes Ciprofloxacin HCl (Ciprofloxacin HCl) 500 Mg Tablet, 500 MG PO BID Prescribed by: JEFFRY STACK on 07/21/201802 Cyclobenzaprine HCl (Cyclobenzaprine HCl) 10 Mg Tablet, 10 MG PO Q8H PRN for SPASMS Prescribed by: JEFFRY STACK on 04/17/20 130 Diclofenac Sodium (Diclofenac Sodium) 75 Mg Tablet.dr, 75 MG PO BID Prescribed by: JEFFRY STACK on 04/17/20 130 Dicyclomine HCl (Dicyclomine HCl) 20 Mg Tablet, 20 MG PO TID Prescribed by: JEFFRY STACK on 07/21/201802 Metronidazole (Metronidazole) 500 Mg Tablet, 500 MG PO TID Prescribed by: JEFRFY STACK on 07/21/201802 Review of Systems Constitutional: No chills, No malaise, No weakness EENTM: No hearing loss, No ear pain, No blurred vision, No mouth pain, No mouth swelling, No throat pain, No throat swelling Respiratory: No cough, No dyspnea on exertion, No short of breath Cardiovascular: No chest pain Gastrointestinal: No abdominal pain, No diarrhea, No nausea, No vomiting Genitourinary: No discharge Musculoskeletal: No back pain; joint pain Skin: No change in color, No change in hair/nails All Other Systems Reviewed Negative Unless Noted: Yes Past Yavakmk-Tohjmo-Rjrybh Hx Patient Social History Tobacco Use?: No Use of E-Cig and/or Vaping dev: No Substance use?: No Alcohol Use?: No Pt feels they are or have been: No Seasonal Allergies Seasonal Allergies: No Past Medical History Surgeries: Yes (Meniscus repair) Vasectomy Respiratory: No Cardiac: Yes High Cholesterol, Hypertension Neurological: No Genitourinary: No Gastrointestinal: No Musculoskeletal: No Endocrine: Yes Diabetes, Non-Insulin dep HEENT: No Cancer: No Psychosocial: No Integumentary: No Blood Disorders: No Physical Exam Vital Signs Vital Signs - First Documented 01/12/23 15:54 Pulse 79 Resp 16 B/P (MAP) 179/108 (131) Pulse Ox 98 O2 Delivery Room Air Capillary Refill : Height, Weight, BMI Height: '" Weight: lbs. oz. kg; 36.00 BMI Method: General Appearance: WD/WN, no apparent distress HEENT: PERRL/EOMI, normal ENT inspection, TMs normal, pharynx normal Neck: non-tender Cardiovascular: regular rate, rhythm, no edema, no gallop, no JVD Respiratory: chest non-tender, lungs clear, normal breath sounds, no respiratory distress Gastrointestinal: normal bowel sounds, non tender, soft Back: normal inspection, no CVA tenderness Shoulder: normal inspection, non-tender, no evidence of injury Elbow/Forearm: bone tenderness (Medial and lateral left epicondyle elbow. Limited passive range of motion secondary to pain. Supination pronation intact. Full extension with limited. 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 Neurovascular intact pre and post splint. No evidence compartment syndrome. Sling for comfort. Pre-Procedure NV Exam: Yes Hand-Made Type: orthoglass Splint Application: Long Arm Progress/Results/Core Measures Results/Orders My Orders Orders - CAMILLE HIGGINBOTHAM Elbow, Left, 3 Views (01/12/23 15:59) Vital Signs/I&O 01/12/23 15:54 Pulse 79 Resp 16 B/P (MAP) 179/108 (131) Pulse Ox 98 O2 Delivery Room Air Departure Communication (PCP) X-ray reviewed by myself concerning for a possible avulsion fracture lateral left elbow joint line. No effusion noted. No displaced fracture. radiologist read fracture versus heterotrophic ossification. 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 He does have point tenderness to this location. Due to the pain on palpation with limited range of motion, patient was placed in a long-arm posterior splint with a sling for comfort. Patient refused anything for pain. Patient will need to follow-up with orthopedic in 7 to [address] Mckeon. Does live in [place] and will follow-up with orthopedic closer to home. Provided restrictions. Anti-inflamm atories such as ibuprofen for pain. Avoid getting the splint wet. Neurovascular intact. No evidence compartment syndrome Impression Primary Impression: Elbow pain Disposition: HOME, SELF-CARE Condition: Stable Departure-Patient Inst. Decision time for Depature: 16:35 Referrals: SINAI MURDOCK MD (PCP/Family) Primary Care Physician LASHON MCKEON MD Patient Instructions: Elbow Fracture (DC) Add. Discharge Instructions: Concern for possible elbow fracture. Sling and splint for comfort. Orthopedic follow-up at [place] in 7 to 10 days. Anti-inflammatories for pain. Avoid getting the splint wet. All discharge instructions reviewed with patient and/or family. Voiced understanding. Work/School Note: Work Release Form Date Seen in the Emergency Department: Jan 12, 2023 Return to Work: Jan 21, 2023 Restrictions: Avoid lifting or driving with the left arm CAMILLE HIGGINBOTHAM Jan 12, 2023 16:04
--- NOTE | 2023-01-12 16:14 | Diagnostic Imaging Report ---
EXAMINATION: Left elbow 3 or more views. HISTORY: Elbow pain. COMPARISON: None available. FINDINGS: There is a small ossific density along the joint line of the lateral elbow joint. It appears well-corticated. No effusion. Alignment is normal. 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 Correlate for focal tenderness. No displaced fracture is seen. Dictated by: Dictated on workstation # [id number]
[2023-01-12 17:08] VITALS: BP 150/99
== END 2023-01-12 17:08 | disposition home or self-care (01) ==
LOC: EDUNIT# 15:48 → ER 15:49
DX: M25.522 Pain in left elbow (principal); V00.131A Fall from skateboard, initial encounter; Y93.51 Activity, roller skating (inline) and skateboarding; Y92.331 Roller skating rink as the place of occurrence of the external cause
CPT/HCPCS: 29105; 73080

== ENCOUNTER 2023-01-22 23:23 | Emergency (ER) | payer OTHER ==
[2023-01-22] MEDS ORDERED: ORPHENADRINE 60 MG/2 ML (NORFLEX) AMP (ED ONLY) IM STA (23:45)
[2023-01-22] MEDS ORDERED: morphine INJ 10 MG/ML 1ML (SYR OR VIAL) IM STA (23:45)
[2023-01-22] MEDS ORDERED: KETOROLAC 60 MG/2 ML VIAL IM STA (23:45)
--- NOTE | 2023-01-22 23:52 | ED Back Pain ---
General Chief Complaint: Lower Extremity Stated Complaint: FALL,BACK PAIN Nursing Triage Note: Pt complaining of right hip pain that radiates to his groin. Pt states he fell about a week and a half ago. Pt states he was seen at urgent care today and was given Ibuprofen, a muscle relaxer, and oral steroids. Pt states he hasn't been able to find a comfortable position tonight Source of Information: Patient History of Present Illness Date Seen by Provider: Jan 22, 2023 Time Seen by Provider: 23:26 Initial Comments 53-year-old male presenting with complaints of low back pain with pain radiating down his right leg. This started on Saturday. He denies any acute injury at the time of pain onset. He did have a fall approximately 2 weeks ago that resulted in fracture to his left arm. He denies having any pain or burning with urination. He is not having any loss of control of bowel or bladder. He reports that he has pain going down the right leg and at times his foot feels numb. He does have a history of borderline diabetes controlled by diet and metformin. He also has hypertension and his blood pressures have been elevated today since he has been in increased pain. He had been seen in the clinic with Dr. Murdock's office today and they had diagnosed him with sciatica and started him on steroids, anti-inflammatories, muscle relaxer. He continued to have pain and was not able to get comfortable this evening. He also felt like he was having pain in the left groin. He denies fever, chills, nausea, vomiting, diarrhea, constipation. Location: Lumbar Spine, Paraspinous Muscles Timing/Duration: 3-4 Days, Getting Worse Severity: Severe Pain/Injury Location: Back, Lower Extremity (Low back pain radiating down the right leg) Radiation: Buttocks (Right side), Feet (Right side), Lower Legs (Right side), Upper Legs (Right side) Method of Injury: Unknown Modifying Factors: Worse With Movement Associated Symptoms: muscle spasms; No fever, No weakness; numbness in legs/feet (At times feels numbness in his right foot.), tingling in legs/feet, lower back pain; No loss of bladder control, No loss of bowel control Allergies and Home Medications Allergies Coded Allergies: Penicillins (Verified Allergy, Unknown, 04/17/20) Patient Home Medication List Home Medication List Reviewed: Yes Ciprofloxacin HCl (Ciprofloxacin HCl) 500 Mg Tablet, 500 MG PO BID Prescribed by: JEFFRY STACK on 07/21/201802 Cyclobenzaprine HCl (Cyclobenzaprine HCl) 10 Mg Tablet, 10 MG PO Q8H PRN for SPASMS Prescribed by: JEFFRY STACK on 04/17/20 130 Diclofenac Sodium (Diclofenac Sodium) 75 Mg Tablet.dr, 75 MG PO BID Prescribed by: JEFFRY STACK on 04/17/20 130 Dicyclomine HCl (Dicyclomine HCl) 20 Mg Tablet, 20 MG PO TID Prescribed by: JEFFRY STACK on 07/21/201802 Metronidazole (Metronidazole) 500 Mg Tablet, 500 MG PO TID Prescribed by: JEFFRY STACK on 07/21/201802 Oxycodone HCl/Acetaminophen (Oxycodone-Acetaminophen 5-325) 5 Mg-325 Mg Tablet, 1 EACH PO Q6H PRN for PAIN SEVERE Prescribed by: AUDI GOYAL on 01/23/23 0056 Review of Systems Constitutional: No chills, No fever EENTM: no symptoms reported Respiratory: no symptoms reported Cardiovascular: no symptoms reported Gastrointestinal: see HPI Genitourinary: see HPI, other (Right groin and flank pain that started today) Musculoskeletal: see HPI, back pain Skin: No change in color Psychiatric/Neurological: Anxiety Past Ohbvytp-Wgkjbs-Jytuuk Hx Patient Social History Tobacco Use?: No Use of E-Cig and/or Vaping dev: No Substance use?: No Alcohol Use?: No Pt feels they are or have been: No Seasonal Allergies Seasonal Allergies: No Past Medical History Surgery/Hospitalization HX: Hypertension, type 2 diabetes, hypercholesterolemia Surgeries: Yes (Meniscus repair) Vasectomy Respiratory: No Cardiac: Yes High Cholesterol, Hypertension Neurological: No Genitourinary: No Gastrointestinal: No Musculoskeletal: No Endocrine: Yes Diabetes, Non-Insulin dep HEENT: No Cancer: No Psychosocial: No Integumentary: No Blood Disorders: No Physical Exam Vital Signs Vital Signs - First Documented 01/22/23 23:26 Pulse 73 Resp 20 B/P (MAP) 188/107 (134) Pulse Ox 99 O2 Delivery Room Air Capillary Refill : Less Than 3 Seconds Height, Weight, BMI Height: '" Weight: lbs. oz. kg; 32.00 BMI Method: General Appearance: No Apparent Distress, WD/WN HEENT: PERRL/EOMI, Pharynx Normal Cardiovascular: Regular Rate, Rhythm, Normal Peripheral Pulses Respiratory: Chest Non Tender, Lungs Clear, Normal Breath Sounds, No Accessory Muscle Use, No Respiratory Distress Gastrointestinal: Normal Bowel Sounds, No Pulsatile Mass, Non Tender, Soft Back: No CVA Tenderness, Muscle Spasm (Right paraspinous lumbar muscle spasms), Vertebral Tenderness (Tender to palpation over the right lower lumbar spine), Other (Pain with straight leg raise on the right at 15 degrees) Extremity: Normal Capillary Refill, Normal Inspection, Non Tender, No Calf Tenderness, No Pedal Edema Neurologic/Psychiatric: Alert, Oriented x3, No Motor/Sensory Deficits, printer slotter feeder II- XII Norm as Tested, Other (Deep tendon reflexes in Achilles and patellar are 2+ equal and symmetric) Skin: Normal Color, Warm/Dry Progress/Results/Core Measures Results/Orders Lab Results Laboratory Tests Test 01/22/23 23:45 Range/Units Urine Color YELLOW Urine Clarity CLEAR Urine pH 5.5 5-9 Urine Specific [place] 1.025 H 1.016-1.022 Urine Protein TRACE H NEGATIVE Urine Glucose (UA) 3+ H NEGATIVE Urine Ketones 1+ H NEGATIVE Urine Nitrite NEGATIVE NEGATIVE Urine Bilirubin NEGATIVE NEGATIVE Urine Urobilinogen 0.2 < = 1.0 MG/DL Urine Leukocyte Esterase NEGATIVE NEGATIVE Urine RBC (Auto) TRACE-I H NEGATIVE Urine RBC RARE /HPF Urine WBC NONE /HPF Urine Squamous Epithelial Cells NONE /HPF Urine Renal Epithelial Cells 0-2 /HPF Urine Crystals NONE /LPF Urine Bacteria NEGATIVE /HPF Urine Casts NONE /LPF Urine Mucus SMALL H /LPF Urine Culture Indicated NO My Orders Orders - AUDI GOYAL MD Ua Culture If Indicated (01/22/23 23:45) Morphine Injection (Morphine Injection (01/22/23 23:45) Orphenadrine Inj (Ed Only) (Norflex Inje (01/22/23 23:45) Ketorolac Injection (Toradol Injection) (01/22/23 23:45) Ct Abdomen/Pelvis Wo (01/23/23 00:12) Rx-Oxycodone/Apap 5-325 Mg (Rx-Percocet (01/23/23 01:00) Medications Given in ED Current Medications Medications Dose Ordered Sig/Yesica Route Start Time Stop Time Status Last Admin Dose Admin Oxycodone/ Acetaminophen 1 ea Q6H PRN PO 01/23/23 01:00 01/23/23 01:01 DC 01/23/23 00:55 1 EA Vital Signs/I&O 01/22/23 01/23/23 23:26 00:56 Pulse 73 73 Resp 20 20 B/P (MAP) 188/107 (134) 188/107 Pulse Ox 99 99 O2 Delivery Room Air Room Air Blood Pressure Mean: 134 Progress Progress Note #1: Progress Note Potential diagnosis of lumbar spine pain with sciatica, compression fracture of lumbar spine, spinal stenosis, degenerative joint disease, herniated disc, kidney stone, pyelonephritis. Since he has not had imaging of his spine to look into his back pain and radiation down his right leg with obtain CT scan abdomen pelvis without IV contrast. This will help evaluate for possible kidney stones in the right groin and flank pain as well as looking at the lumbar spine and pelvis to look for indications of his sciatica. Ordered urinalysis to look for signs of infection or hematuria. Administer morphine 4 mg IM for pain, Norflex 60 mg IM for muscle spasms, ketorolac 60 mg IM for pain and inflammation. Progress Note #2: Time: 00:18 Progress Note His urinalysis showed elevated specific gravity of 1.025 to go along with some dehydration. He also had 3+ glucose and 1+ ketones in his urine. He did not have significant amount of blood in his urine to indicate a kidney stone. He also was not having nitrites or leukocyte esterase for infection. On my personal interpretation and review of the CT scan of the abdomen pelvis without IV contrast I did not appreciate any acute renal stones or ureteral stones. He had arthritic degenerative changes of the lumbar spine and spondylolisthesis but I did not appreciate any acute fracture. He does have widespread diverticulosis. Progress Note #3: Progress Note I reviewed the radiologist report at 0029. Patient had no acute findings on the lumbar spine per the radiologist. He had some diverticulosis and one area with mild possible colitis. Encouraged to check back through the clinic for contin ued pain control. He might still have it from an MRI and look at the nerves in better detail. Will prescribe Oxycodone/Acetaminophen 5/325 mg pills as 1 every 6 hours prn severe pain. Send with 4 pills tonight to help provide pain relief until [facility] opens in the morning. He reports his pain is down to 4 out of 10 with the treatment he got here. Reassured that he did not have kidney stone or acute diverticulitis or abscess to cause his symptoms. continue taking steroid medrol dose pack and cyclobenzaprine from the clinic. Diagnostic Imaging Diagonstic Imaging: CT Plain Films/CT/US/NM/MRI: abdomen, pelvis Comments CT scan abdomen and pelvis without IV contrast next Findings: Hepatic steatosis. Indeterminate nodular thickening bilateral adrenal glands. Negative for obstructive uropathy. No acute findings remaining on the unenhanced solid abdominal organs. Negative for radiopaque gallstones. Negative for lower GI tract obstruction, pneumatosis, or extraluminal gas. Moderate diverticulosis of the left colon. Questional proximal mild sigmoid colon wall thickening and minimal adjacent inflammatory changes suggesting short segment of uncomplicated mild colitis. Normal appendix. Bladder wall thickening likely secondary to chronic outlet obstruction or cystitis. Read by radiologist Dr. Emigdio Miller at 0006 and faxed at 0024 Reviewed: Reviewed [place] Study, Reviewed by Me Departure Impression Primary Impression: Low back pain with right-sided sciatica Qualified Codes: M54.41 - Lumbago with sciatica, right side Additional Impression: Right groin pain Disposition: HOME, SELF-CARE Condition: Stable Departure-Patient Inst. Decision time for Depature: 00:54 Referrals: SINAI MURDOCK MD (PCP/Family) Primary Care Physician Patient Instructions: Sciatica ED, Low Back Pain ED Add. Discharge Instructions: Continue taking the steroids and medicines from the clinic today to help with in flammation and muscle spasms in your back that are irritating the sciatic nerve. For severe pain take the oxycodone with acetaminophen 5/325 mg 1 pill every 6 hours as needed for severe pain. This can cause constipation so if you are taking it regularly consider taking MiraLAX or laxative to help prevent constipation. Try to drink more water and stay better hydrated. Follow-up through the clinic for continued symptoms especially if you continue to have intermittent numbness into the foot and leg as they may need to get you set up for an MRI. If you have sudden loss of control of your bowels or bladder you need to return or be seen immediately as you need to be transferred to a facility that has spine surgeon and MRI capabilities. All discharge instructions reviewed with patient and/or family. Voiced understanding. Scripts Oxycodone HCl/Acetaminophen (Oxycodone-Acetaminophen 5-325) 5 Mg-325 Mg Tablet 1 EACH PO Q6H PRN for PAIN SEVERE MDD 6 for 3 Days, #12 TAB 0 Refills Prov: AUDI GOYAL MD 01/23/23 Work/School Note: Work Release Form Date Seen in the Emergency Department: Jan 22, 2023 Return to Work: Jan 24, 2023 AUDI GOYAL MD Jan 22, 2023 23:52
[2023-01-22 23:54] LABS: BILIRUBIN,URINE NEGATIVE (NEGATIVE); CLARITY,URINE CLEAR; COLOR,URINE YELLOW; GLUCOSE, URINE (UA) 3+ (NEGATIVE); KETONES,URINE 1+ (NEGATIVE); LEUKOCYTE ESTERASE ,URINE NEGATIVE (NEGATIVE); NITRITE,URINE NEGATIVE (NEGATIVE); PH,URINE 5.5 (5-9); PROTEIN,URINE TRACE (NEGATIVE)
[2023-01-23 00:01] LABS: BACTERIA,URINE NEGATIVE /HPF; RBC,URINE RARE /HPF
[2023-01-23 00:02] LABS: RENAL EPITHELIAL CELLS,URINE 0-2 /HPF
[2023-01-23] MEDS ORDERED: OXYC1TAB11 PO (00:55)
[2023-01-23 00:56] VITALS: BP 188/107
[2023-01-23] MEDS ORDERED: RX-OXYCODONE/APAP 5-325 MG #4 TAB PK PO PRN (01:00)
--- NOTE | 2023-01-23 07:11 | Diagnostic Imaging Report ---
PROCEDURE: CT abdomen and pelvis without contrast. TECHNIQUE: Multiple contiguous axial images were obtained through the abdomen and pelvis without the use of intravenous contrast. Auto Exposure Controls were utilized during the CT exam to meet ALARA standards for radiation dose reduction. INDICATION: Low back pain. Fall. Right hip pain. COMPARISON: 07/21/2020. FINDINGS: The heart is unremarkable. The lung bases are clear. There is hepatic steatosis with focal fatty sparing along the gallbladder fossa. The gallbladder is nondistended. Generalized thickening and nodularity is seen in the left adrenal gland, similar to the prior exam. The right adrenal gland is unremarkable. The spleen, pancreas, and kidneys have a normal appearance. There is no pathologically enlarged mesenteric or retroperitoneal adenopathy. The bowel loops are nondilated. The appendix is visualized in the right lower quadrant and has a normal appearance. Diverticuli are seen throughout the descending and sigmoid colon without evidence of acute diverticulitis. There is no free fluid or free air. No acute osseous abnormalities. There is calcified aortic and iliac atherosclerotic plaque without aneurysm. Ureters and bladder are normal. There is no free air, loculated collection, or adenopathy in the pelvis. IMPRESSION: 1. No acute abnormalities in the abdomen and pelvis. 2. Diverticulosis of the descending and sigmoid colon without evidence of acute diverticulitis. 3. Hepatic steatosis. 4. Stable nodularity and thickening of the left adrenal gland. Agree with overnight report. Dictated by: Dictated on workstation # [id number]
== END 2023-01-23 01:01 | disposition home or self-care (01) ==
LOC: EDUNIT# 23:23 → ER FS 23:24
DX: M54.41 Lumbago with sciatica, right side (principal); R10.31 Right lower quadrant pain; Z28.310 Unvaccinated for COVID-19
CPT/HCPCS: 74176; 81000

== ENCOUNTER → 2023-02-07 | Outpatient (CLI) | payer OTHER ==
[~2023-02-07] MED LIST changes: +OXYC1TAB11 PO
--- NOTE | 2023-02-07 12:35 | Diagnostic Imaging Report ---
EXAMINATION: Left elbow radiographs, 3 views. COMPARISON: January 12, 2023. HISTORY: 53-year-old male, left elbow pain. History of prior fracture in January 2023. FINDINGS: There is a mildly displaced fracture of the coracoid process. There is no interval bony callus bridging or periosteal reaction. There is a small elbow joint effusion. The elbow is not dislocated. There is no additional identified fracture. IMPRESSION: 1. Mildly displaced fracture of the coracoid process without interval periosteal reaction or bony callus bridging. No change in fracture alignment. 2. Persistent small elbow joint effusion. Dictated by: Dictated on workstation # [id number]
== END ==
LOC: RAD FS 09:27
PROVIDERS: ATTEND Family Medicine
DX: S42.132A Displaced fracture of coracoid process, left shoulder, initial encounter for closed fracture (principal); M25.422 Effusion, left elbow; F41.1 Generalized anxiety disorder; X58.XXXA Exposure to other specified factors, initial encounter
CPT/HCPCS: 73080

== ENCOUNTER → 2023-02-08 | Outpatient (CLI) | payer OTHER ==
--- NOTE | 2023-02-08 12:16 | Diagnostic Imaging Report ---
INDICATION: Left wrist pain after skating injury. EXAMINATION: Left wrist 02/08/2023. FINDINGS: 3 views of the wrist There are no fractures. No dislocations. The joint spaces appear maintained. Soft tissues unremarkable. Impression: 1. No acute process. Dictated by: Dictated on workstation # [id number]
== END ==
LOC: RAD FS 10:23
PROVIDERS: ATTEND Nurse Practitioner
DX: M25.532 Pain in left wrist (principal)
CPT/HCPCS: 73110

== ENCOUNTER → 2023-04-18 | Outpatient (CLI) | payer OTHER ==
[~2023-04-18] MED LIST changes: +CATHETER FLUSH 10 ML SYR IVP PRN
--- NOTE | 2023-04-18 12:37 | Diagnostic Imaging Report ---
Indication: Abdominal pain and nausea. Patient was administered 5.3 mCi technetium 99M Choletec intravenously and imaging over the abdomen was performed. At 60 minutes patient ingested 8 ounces of ensure and gallbladder ejection fraction was calculated. There is homogeneous uptake of activity by the liver with prompt excretion of activity into the gallbladder and common duct. There is normal passage of activity into the small bowel. Gallbladder ejection fraction is 98%. IMPRESSION: 1. Patent cystic duct and common bile duct. 2. Gallbladder ejection fraction of 98%. Dictated by: Dictated on workstation # [id number]
== END ==
LOC: CARD 09:13
PROVIDERS: ATTEND Surgery
DX: R10.9 Unspecified abdominal pain (principal); R11.0 Nausea
CPT/HCPCS: 78227; A9537